=== PATIENT | female | born 1930 | race Caucasian/White ===

== ENCOUNTER 2016-06-24 13:39 | Inpatient (IN) | payer MEDICARE, BC ==
--- NOTE | ~2016-06-24 | MR122 ---
[facility] A Service of [facility] RADIOLOGY TEXT RESULTS PATIENT: VIOLET LÓPEZ LOCATION: [facility] : 30 UNIT #: [id number] AGE: [address]: Celestine Coelho MD SEX: F ORDER DR: [id number] [facility] [address] [facility]. [place], [place] [address] [id number] I MR#: [id number] Acc #: [id number] NAME: VIOLET LÓPEZ. : 1930 SEX: F STUDY DATE/TIME: 06/25/2016 21:39 UNIT: C3A PCU ROOM: [facility] STUDY DESCRIPTION: MR MRA Head Wo Contrast Attending Physician: Celestine Coelho M.D. Ordering Physician: Yumiko Kirk M.D. Primary Care Physician: No Primary Care Physician MRI CENTER REPORT This report is preliminary unless electronic signature is present. EXAM Head MRA, no contrast, 06/25/2016. PROCEDURE Axial feye-rw-ymqpud head MRA with 3-dimensional reformats. COMPARISON STUDIES Head MRI, same date. HISTORY Right facial droop and slurred speech, left jackson radiata infarct. FINDINGS A right vertebral is not seen. The left vertebral supplies the basilar artery. Both internal carotid arteries are patent at the skull base. The anterior communicator and both A1 anterior cerebrals are patent. Both posterior communicators are clearly patent, as well. There are technical areas of signal drop-out in the mid MCAs bilaterally, but grossly, there appears to be symmetric vascularity. IMPRESSION Technically limited, but probably normal head MRA. Areas of signal drop-out appear to be technical. [place] appears complete, and no aneurysm is seen. Dictated by... Dwaine Palencia M.D. THIS IS AN ELECTRONICALLY VERIFIED REPORT [facility] A Service of [facility] RADIOLOGY TEXT RESULTS PATIENT: VIOLET LÓPEZ LOCATION: [facility] 313 : 30 UNIT #: [id number] AGE: [address]: Celestine Coelho MD SEX: F ORDER DR: Dwaine Palencia M.D. at 06/27/2016 3:37 PM BELEN/shanita TD: 06/26/2016 13:41 JOB #: [id number] MRI CENTER REPORT COPY
--- NOTE | ~2016-06-24 | CO ---
Unit #: [id number] #: [id number] Patient: VIOLET SPENCER [id number] [facility] [address] [facility]. [place], [place] [address] [id number] I MR#: [id number] NAME: VIOLET SPENCER. ROOM: 313 Age: 86 Sex: F Admission Date: 06/25/2016 : 1930 Attending Physician: Celestine Coelho M.D. Consultation Date: 06/26/2016 CONSULTATION REPORT DISCUSSION Ms. Violet Spencer is an 86-year-old female, seen on 06/26/2016. The patient was seen in room 313, bed 1, at [facility]. The patient was admitted due to agitation and history of dementia. The patient was admitted on 06/24/2016 with slurred speech. The patient was seen by Neurology and diagnosed with right-sided severe weakness, possible ischemic stroke, toxic encephalopathy, UTI, dementia. The patient was sleeping, refusing to open her eyes, refusing to answer any question, very agitated when aroused. The patient was pushing, hitting, pulling things. Also obtained information from the patient's nursing staff. PAST PSYCHIATRIC HISTORY Remarkable for history of dementia. MEDICAL HISTORY The patient has a right-sided facial droop, uncontrollable hypertension, UTI, sepsis, chronic kidney disease, history of cerebrovascular accident with mild left-sided weakness, degenerative joint disease, history of seizure, dementia, history of deep venous thrombosis. MEDICATIONS The patient is on Coumadin 3 mg Friday, , Friday; Norvasc; Plavix; Catapres; Coumadin; NovoLog. Please refer to H and P for details. FAMILY HISTORY AND SOCIAL HISTORY The patient lives with her daughter. Has good support system. No history of any abuse. No history of any substance abuse. REVIEW OF SYSTEMS Complete review of systems is remarkable for agitation and confusion. MENTAL STATUS EXAMINATION General appearance; the patient dressed in hospital attire. Attention span and concentration, poor. Speech, the patient is refusing to answer any question. Orientation, unable to assess. Mood and affect, labile. Thought process, thought content, guarded, paranoid. Recent and remote memory, poor. Language unable to assess. Fund of knowledge, unable to assess. Insight and judgment, impaired. DIAGNOSES Psychiatric: 1. Psychosis, not otherwise specified, F29.0. 2. 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 Secondary diagnosis: Deferred. Medical diagnosis: Please refer to H and P. Stressors: Psychosocial stressors. ASSESSMENT/PLAN 1. Supportive psychotherapy and psychoeducation were provided to the patient, the patient is unable to comprehend. 2. Discussed case with the nursing staff. Advised at this time to continue with current treatment. If needed, consider a sitter for the patient's safety and advised Risperdal 0.25 mg t.i.d. based on tolerability and effects of the medication. If needed, consider further adjustment of dosage. Please feel free to call if any questions, telephone #[phone]. Dictated by... Byron Garcia/ladonna TD: 06/27/2016 08:38 JOB #: [id number] CONSULTATION REPORT X Jeffrey Su MD X CONSULTATION REPORT
--- NOTE | ~2016-06-24 | MR18 ---
[facility] A Service of [facility] RADIOLOGY TEXT RESULTS PATIENT: VIOLET LÓPEZ LOCATION: [facility] 313-01 : 30 UNIT #: [id number] AGE: [address]: Celestine Coelho MD SEX: F ORDER DR: [id number] [facility] [address] [facility] [place], [place] [address] [id number] I MR#: [id number] Acc #: [id number] NAME: VIOLET LÓPEZ. : 1930 SEX: F STUDY DATE/TIME: 06/24/2016 19:58 UNIT: A U ROOM: [facility] STUDY DESCRIPTION: MR Brain Wo Contrast Attending Physician: Celestine Coelho M.D. Ordering Physician: Mary Camp M.D. Primary Care Physician: No Primary Care Physician MRI CENTER REPORT This report is preliminary unless electronic signature is present. EXAM MRI of the brain without contrast HISTORY 86-year-old female right facial droop, slurred speech, weakness, onset 06/24/2016 at [address] 06/24/2016 FINDINGS Multiplanar multiecho imaging was performed of the brain to include diffusion weighted and FLAIR imaging. Examination demonstrates approximately 2 cm focus of a restricted diffusion within the left periventricular white matter at about the mid ventricular level. This extends to the ventricular surface. Findings compatible with acute periventricular white matter infarct. This is in the distribution of the middle cerebral artery. Generalized atrophy with diffuse prominence of the ventricles, sulci and basilar cisterns. Extensive T2 periventricular hyperintensity as well as hyperintensity within the deep white matter most likely reflects chronic small vessel ischemic disease. No mass, mass effect or midline shift. Some focal cortical atrophy is seen over the left posterior parietal cortex. Skull base, mastoid sinuses unremarkable. IMPRESSION 1. A small acute appearing periventricular infarct in the left periventricular white matter. This demonstrates restricted diffusion and a corresponding low signal on the ADC map. This is compatible with an acute infarct. 2. Generalized atrophy with extensive chronic-appearing periventricular white matter and deep white matter disease probably representing the sequela of chronic microvascular disease. STS. [facility] A Service of [facility] RADIOLOGY TEXT RESULTS PATIENT: VIOLET LÓPEZ LOCATION: [facility] 313-01 : 30 UNIT #: [id number] AGE: [address]: Celestine Coelho MD SEX: F ORDER DR: Dictated by... Lukasz Hammer M.D. THIS IS AN ELECTRONICALLY VERIFIED REPORT Lukasz Hammer M.D. at 06/25/2016 6:33 PM Claudio TD: 06/25/2016 09:45 JOB #: [id number] MRI CENTER REPORT COPY
--- NOTE | ~2016-06-24 | EKG ---
PATIENT: VIOLET LÓPEZ UNIT #: [id number] Ventricular Rate: 62 BPM Atrial Rate: 62 BPM P-R Interval: 166 ms QRS Duration: 82 ms Q-T Interval: 454 ms QTC Calculation(Bezet): 460 ms P [place]: 33 degrees Calculated R [place]: 1 degrees Calculated T [place]: -42 degrees Diagnosis Line: Normal sinus rhythm Diagnosis Line: Voltage criteria for left ventricular hypertrophy Diagnosis Line: Nonspecific ST and T wave abnormality Diagnosis Line: Abnormal ECG Diagnosis Line: No previous ECGs available Diagnosis Line: Confirmed by GLENN JONES MD ([id number]) on Diagnosis Line: 06/24/2016 3:28:54 PM INTERPRETING MD: ROBERT VILLAGOMEZ
--- NOTE | ~2016-06-24 | MR134 ---
[facility] A Service of [facility] RADIOLOGY TEXT RESULTS PATIENT: VIOLET LÓPEZ LOCATION: [facility] 313- : 30 UNIT #: [id number] AGE: [address]: Celestine Coelho MD SEX: F ORDER DR: [id number] [facility] [address]. [place], [place] [address] [id number] I MR#: [id number] Acc #: [id number] NAME: VIOLET LÓPEZ. : 1930 SEX: F STUDY DATE/TIME: 06/25/2016 21:39 UNIT: [facility] PCU ROOM: [facility] STUDY DESCRIPTION: MR MRA Neck Wo Contrast Attending Physician: Celestine Coelho M.D. Ordering Physician: Yumiko Kirk M.D. Primary Care Physician: Primary Care Physician No MRI CENTER REPORT This report is preliminary unless electronic signature is present. EXAM Neck MRA without contrast, 06/25/2016 PROCEDURE Axial jjnn-bu-jlpzrq neck MRA with both three-dimensional and two-dimensional axial acquisitions and three-dimensional reformats of both. COMPARISON Head MRI same date. CLINICAL HISTORY Right facial droop and slurred speech. Left jackson radiata acute infarct on MRI. FINDINGS Both common and internal and external carotid arteries are widely patent. The right vertebral artery, however is absent. Allowing for mild motion artifact, the carotid bifurcations appear normal without evidence of substantial plaque. There is 0% stenosis in both internal carotids by NASCET criteria. IMPRESSION 1. Absent or occluded right vertebral artery. 2. Normal carotid bifurcations bilaterally. No evidence of stenosis in either internal carotid by NASCET or other criteria. Dictated by... Dwaine Palencia M.D. THIS IS AN ELECTRONICALLY VERIFIED REPORT Dwaine Palencia M.D. at 06/27/2016 3:37 PM BELEN/amilcar [facility] A Service of [facility] & [facility] RADIOLOGY TEXT RESULTS PATIENT: VIOLET LÓPEZ LOCATION: [facility] 313- : 30 UNIT #: [id number] AGE: [address]: Celestine Coelho MD SEX: F ORDER DR: TD: 06/26/2016 13:25 JOB #: [id number] MRI CENTER REPORT COPY
--- NOTE | ~2016-06-24 | CO ---
Unit #: [id number] #: [id number] Patient: VIOLET SPENCER [id number] [id number] [facility]. [place], [place] [address] [id number] I MR#: [id number] NAME: VIOLET SPENCER. ROOM: 313 Age: 86 Sex: F Admission Date: 06/25/2016 : 1930 Attending Physician: Celestine Coelho M.D. CONSULTATION REPORT REASON FOR CONSULTATION Acute kidney injury in the setting of stage 3/4 chronic kidney disease. HISTORY OF PRESENT ILLNESS This 86-year-old white female, who has stage 3/4 chronic kidney disease with a baseline creatinine around 1.8, who is followed by Dr. Clements in our office. She was brought to the emergency department for abnormal speech and difficulty walking. She had a right facial droop. In the emergency department, her CT of the head showed nothing acute. Her BUN and creatinine were worse at 38 and 2.2. The patient's blood pressure was very elevated at 204/106. She was brought in for further evaluation of stroke. She also had some pyuria on urinalysis and was started on empiric Rocephin for UTI. PAST MEDICAL HISTORY 1. Recent left hip fracture and repair in 01/2016. 2. Stage 3/4 chronic kidney disease, followed by Dr. Clements in our office. 3. Dementia. 4. Hypertension. 5. DVT, on Coumadin. PAST SURGICAL HISTORY 1. Bilateral hip surgery. 2. Hemorrhoid surgery. SOCIAL HISTORY The patient lives with her daughter, who is caregiver. The daughter is very supportive. She usually can get around with a walker. She does not smoke or drink. ALLERGIES No known drug allergies. MEDICATIONS Current hospital medications are Rocephin, Plavix, Catapres, Norvasc, hydralazine, Lopressor, half normal saline with D5 at 125 mL an hour, Coumadin, and Lovenox. REVIEW OF SYSTEMS The patient is confused and has some baseline dementia so review of systems is limited, but currently the patient is not complaining of pain and no distress of any kind. Resting comfortably in bed. Her daughter is present. Unit #: [id number] #: [id number] Patient: VIOLET SPENCER PHYSICAL EXAMINATION GENERAL: This lady is thin. VITAL SIGNS: Blood pressure is 154/78, heart rate is 70, temperature is 97.5. HEENT: Extraocular muscles are intact. There is no eye drainage. No icterus. NECK: Supple without JVD, thyromegaly, or carotid bruit. CHEST: Shows regular rate and rhythm. There is no gallop or rub. LUNGS: Clear to auscultation bilaterally. ABDOMEN: Soft, nontender, nondistended. Positive bowel sounds. EXTREMITIES: No cyanosis, clubbing, or edema. DIAGNOSTIC STUDIES LABORATORY RESULTS: Shows potassium of 3.2, BUN of 38, creatinine of 2.2. Urinalysis shows 1+ leukocytes, 3+ protein, 1+ blood, 50 white blood cells, and 4+ bacteria. IMAGING STUDIES: Chest x-ray shows no CHF. ASSESSMENT 1. Acute kidney injury. The patient appears volume depleted on exam. We will order half-normal saline to run at 100 mL an hour for 1 L. 2. Uncontrolled hypertension. Her home medicines will be restarted with attempt at avoidance of over control of blood pressure. 3. Right facial droop, abnormal speech, difficulty walking. Neurology has been consulted. The patient has Coumadin on board for history of deep vein thrombosis and is on Plavix. Further recommendations will be per Neurology. 4. Urinary tract infection, on Rocephin. 5. Chronic kidney disease, stage 3 with a baseline creatinine of 1.8. she sees Dr. Clemetns in the office. 6. History of deep vein thrombosis, on Coumadin. 7. History of baseline dementia. PLAN We will order IV fluids for hydration. Would avoid IV contrast NSAIDs and over control of blood pressure at this time. We will reorder home medicines for blood pressure control. Neurology has been consulted. Thank you very much for allowing me to see Ms. Violet Spencer in consultation. We will follow closely with you. Dictated by... Mily Castle M.D. MALCOLM/ladonna TD: 06/27/2016 00:49 JOB #: [id number] Unit #: [id number] #: [id number] Patient: VIOLET SPENCER CONSULTATION REPORT X Mily Castle MD CONSULTATION REPORT
--- NOTE | ~2016-06-24 | EKG ---
PATIENT: VIOLET LÓPEZ UNIT #: [id number] Ventricular Rate: 66 BPM Atrial Rate: 66 BPM P-R Interval: 162 ms QRS Duration: 86 ms Q-T Interval: 428 ms QTC Calculation(Bezet): 448 ms P [place]: 31 degrees Calculated T [place]: 115 degrees Diagnosis Line: Normal sinus rhythm Diagnosis Line: Voltage criteria for left ventricular hypertrophy Diagnosis Line: T wave abnormality, consider lateral ischemia Diagnosis Line: Abnormal ECG Diagnosis Line: When compared with ECG of 24-JUN-2016 13:03, Diagnosis Line: Inverted T waves have replaced nonspecific T wave Diagnosis Line: abnormality in Lateral leads Diagnosis Line: Confirmed by GLENN JONES MD ([id number]) on Diagnosis Line: 06/26/2016 11:23:57 AM INTERPRETING MD: ROBERT VILLAGOMEZ
--- NOTE | ~2016-06-24 | CR72 ---
[facility] A Service of [facility] RADIOLOGY TEXT RESULTS PATIENT: VIOLET LÓPEZ LOCATION: [facility] 313-01 : 30 UNIT #: [id number] AGE: [address]: Celestine Coelho MD SEX: F ORDER DR: [id number] [facility] [address] [facility]. [place], [place] [address] [id number] E MR#: [id number] Acc #: [id number] NAME: VIOLET LÓPEZ : 1930 SEX: F STUDY DATE/TIME: 06/24/2016 13:11 UNIT: [facility] ROOM: STUDY DESCRIPTION: CR Chest Single View Portable Attending Physician: Antoni Miguel M.D. Ordering Physician: Antoni Miguel M.D. Primary Care Physician: No Primary Care Physician MEDICAL IMAGING REPORT This report is preliminary unless electronic signature is present EXAM Chest, portable, 06/24/2016, 1311 hours. CLINICAL HISTORY 86-year-old woman with weakness, shortness of air, and slurred speech since last night. COMPARISON 01/29/2016 FINDINGS Portable upright chest demonstrates slightly low lung volumes. Heart size is at the upper limits of normal. There is a tortuous aorta unchanged. Lung volumes are low but the lungs are clear. There is no effusion. 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 Chronic degenerative change left shoulder. IMPRESSION 1. Low lung volumes with heart size within normal limits and stable tortuous aorta. The lungs are clear and there are no effusions. 2. Chronic degenerative change at both shoulders likely with chronic nonunion right proximal humeral fracture and an element of chronic dislocation appearing similar to 01/29/2016. Dictated by... Melissa Kasper M.D. THIS IS AN ELECTRONICALLY VERIFIED REPORT Melissa Kasper M.D. at 06/25/2016 9:25 AM GÓMEZ/roberto [facility] A Service of [facility] RADIOLOGY TEXT RESULTS PATIENT: VIOLET LÓPEZ LOCATION: [facility] 313-01 : 30 UNIT #: [id number] AGE: [address]: Celestine Coelho MD SEX: F ORDER DR: TD: 06/24/2016 15:07 JOB #: [id number] MEDICAL IMAGING REPORT COPY
--- NOTE | ~2016-06-24 | CT71 ---
[facility] A Service of [facility] RADIOLOGY TEXT RESULTS PATIENT: VIOLET LÓPEZ LOCATION: [facility] : 30 UNIT #: [id number] AGE: [address]: Mary Camp MD SEX: F ORDER DR: [id number] [facility] [address] [place], [place] [address] [id number] E MR#: [id number] Acc #: [id number] NAME: VIOLET LÓPEZ : 1930 SEX: F STUDY DATE/TIME: 06/24/2016 14:01 UNIT: [facility] ROOM: STUDY DESCRIPTION: CT Head Wo Contrast Attending Physician: Antoni Miguel M.D. Ordering Physician: Antoni Miguel M.D. Primary Care Physician: No Primary Care Physician MEDICAL IMAGING REPORT This report is preliminary unless electronic signature is present EXAM Head CT no contrast 06/24/2016 PROCEDURE Axial unenhanced head CT This CT exam was performed with one or more of the following radiation dose reduction techniques: automatic exposure control, adjustment of mA and/or kV according to patient size, and iterative reconstruction. COMPARISON STUDIES Prior head CT dated 01/25/2016 HISTORY Slurred speech and weakness since 2199 on 06/23/2016. FINDINGS There is no intracranial hemorrhage. There is volume loss and there are chronic white matter changes and there is ventriculomegaly but these findings are stable when compared to the prior study. There is no convincing evidence of acute ischemia and there is no hydrocephalus or extraaxial fluid collection. Intracranial atherosclerotic vascular calcifications are redemonstrated. The extracranial soft tissues are normal. IMPRESSION Chronic small vessel type white matter change and volume loss. No acute abnormality and no interval change since 01/25/2016. Dictated by... Dwaine Palencia M.D. [facility] A Service [facility] RADIOLOGY TEXT RESULTS PATIENT: VIOLET LÓPEZ LOCATION: [facility] : 30 UNIT #: [id number] AGE: [address]: Mary Camp MD SEX: F ORDER DR: THIS IS AN ELECTRONICALLY VERIFIED REPORT Dwaine Palencia M.D. at 06/24/2016 5:02 PM BELEN/aguilar TD: 06/24/2016 16:53 JOB #: [id number] MEDICAL IMAGING REPORT COPY
--- NOTE | ~2016-06-24 | HP ---
Unit #: [id number] #: [id number] Patient: VIOLET LÓPEZ [id number] [place], [place] [address] [id number] I MR#: [id number] NAME: VIOLET LÓPEZ. ROOM: 313 Age: Sex: F Admission Date: 06/24/2016 : 1930 Attending Physician: Celestine Coelho M.D. Primary Care Physician: Primary Care Physician No HISTORY AND PHYSICAL CHIEF COMPLAINT Slurred speech, last seen normal last night. HISTORY OF PRESENT ILLNESS The patient is an 86-year-old female with a past medical history of hypertension, chronic kidney disease, cerebrovascular accident, degenerative joint disease, seizures, dementia, DVT, and chronic anticoagulation, who presented to the emergency department for evaluation of the above. History is obtained from discussion with ER staff, as well as the patient's daughter who is at the bedside. The patient was apparently last normal around 10:30 on the evening prior to admission. This morning at 10 a.m. the patient's daughter noticed that she had abnormal speech and was unable to walk. She also noticed a right-sided facial droop. She was brought to the emergency department for further evaluation. In the emergency department, a CT of the head was done and showed nothing acute. Chest x-ray showed nothing acute. Laboratory is notable for BUN and creatinine of 38 and 2.2, respectively. INR is 1.7. Urinalysis shows findings concerning for urinary tract infection. Also of note, the patient's blood pressure was 204/106. She was given 20 mg of labetalol, and most recent blood pressure was 154/78. Also of note, the patient's temperature was 95. She was placed on a Layton Hugger. She also received a gram of Rocephin. She is being admitted to [facility] for evaluation and further treatment. PAST MEDICAL HISTORY 1. Admission to [facility] January 24-2015, following a fall with left hip fracture. She underwent intramedullary nailing during that admission. 2. Cerebrovascular accident with mild residual left-sided weakness. 3. Hypertension. 4. Chronic kidney disease. The patient has seen Dr. De Guzman in the past. 5. Degenerative joint disease. 6. Possible history of seizure. 7. Deep venous thrombosis, on chronic anticoagulation with Coumadin. 8. Dementia. At baseline, the patient's daughter states that she may or may not know the year. PAST SURGICAL HISTORY 1. Bilateral hip surgery. 2. Hemorrhoid surgery. Unit #: [id number] #: [id number] Patient: VIOLET LÓPEZ SOCIAL HISTORY The patient lives with her daughter. She typically walks with a walker. There is no tobacco or alcohol use. Her code status is a Do Not Resuscitate. FAMILY HISTORY Diabetes. ALLERGIES No known allergies. HOME MEDICATIONS Plavix and Coumadin. The patient is not on aspirin. Home medications will need to be reviewed and verified. REVIEW OF SYSTEMS A complete review of systems is negative except as indicated in the History of Present Illness. PHYSICAL EXAMINATION VITAL SIGNS: Temperature 95, pulse 70, respirations 25, blood pressure 204/106 and most recently 154/78, and oxygen saturation 99% on room air. GENERAL: Patient is an female who is awake, alert, and in no acute distress. HEENT: Head is atraumatic. Mucous membranes are moist. NECK: Supple. Trachea is midline. CARDIOVASCULAR: Regular rate and rhythm. LUNGS: Clear to auscultation bilaterally with no increased work of breathing. ABDOMEN: Soft and nontender with bowel sounds present in all four quadrants. EXTREMITIES: Nontender with no pedal edema. NEUROLOGIC: Patient is awake and alert. She does have slurred speech. She is somewhat slow to respond. She is following commands. She does have a right facial droop. Tongue is midline. Singing Teacher strength is decreased involving the right hand. She does have pronator drift involving the right upper extremity. PSYCHIATRIC: Patient is cooperative. SKIN: Skin of examined areas is warm and dry. DIAGNOSTIC STUDIES LABORATORY: INR is 1.7. Troponin is less than 0.05. Complete blood count is completely normal. Comprehensive metabolic panel is notable for a potassium of 3.2, glucose 119, BUN and creatinine 38 and 2.2, respectively, and alkaline phosphatase is 121. Urinalysis is notable for 1+ leukocyte esterase, 3+ protein, 1+ blood with 50-100 white blood cells, and 4+ bacteria. No squamous cells are seen. IMAGING: Chest x-ray shows nothing acute. CT of the head shows nothing acute. CARDIOLOGY: EKG shows normal sinus rhythm with a rate of 62 beats per minute. ASSESSMENT The patient is an 86-year-old female with: 1. Right facial droop, abnormal speech, and right upper extremity weakness concerning for cerebrovascular accident. The patient is on Unit #: [id number] #: [id number] Patient: VIOLET LÓPEZ Coumadin for deep venous thrombosis. INR is 1.7. She is also on Plavix. 2. Uncontrolled hypertension. The patient received 20 mg of labetalol in the emergency department. Most recent blood pressure was 154/78. 3. Urinary tract infection. The patient received Rocephin in the emergency department. 4. Sepsis. 5. Chronic kidney disease. The patient's creatinine was 1.7 on November 18, 2015. It is 2.2 today. The patient has seen Dr. De Guzman in the past. 6. History of cerebrovascular accident with mild left-sided weakness. 7. Degenerative joint disease. 8. History of seizures possibly. 9. Dementia. The patient would normally be oriented to person and place but not typically dates. 10. History of deep venous thrombosis, on chronic anticoagulation with Coumadin. PLAN 1. Admit to intermediate level. 2. N.p.o. until Speech evaluation. 3. Speech Therapy to evaluate and treat. 4. Aspirin if not already given. 5. Consult Dr. Kirk regarding right facial droop and concern for stroke. 6. MRI of the brain without contrast. 7. Neuro checks. 8. Stroke protocol per Neurology. 9. Blood cultures x2. 10. Urine culture and sensitivity on urine in the lab. 11. Rocephin IV pending results of urine culture. 12. Sepsis protocol with stat lactic acid. 13. Serial cardiac enzymes. 14. Replace potassium. 15. Check magnesium level. 16. Layton Hugger per protocol. 17. Consult Dr. De Guzman regarding acute on chronic kidney disease. 18. Strict I/Os. 19. Repeat labs in the morning. 20. Additional workup and consultants based on above. 21. Regarding code status, the patient is a Do Not Resuscitate. 1. Dictated by Mary Camp M.D. AW/mckayla TD: 06/24/2016 18:13 JOB #: [id number] Unit #: [id number] #: [id number] Patient: VIOLET LÓPEZ HISTORY AND PHYSICAL X Mary Camp MD HISTORY AND PHYSICAL
--- NOTE | ~2016-06-24 | DS ---
Unit #: [id number] #: [id number] Patient: VIOLET LÓPEZ [id number] [address] [id number] I MR#: [id number] NAME: VIOLET LÓPEZ. ROOM: 228 Age: 86 Sex: F Admission Date: 06/25/2016 : 1930 Discharge Date: 06/28/2016 Attending Physician: Celestine Coelho M.D. Primary Care Physician: No Primary Care Physician DISCHARGE SUMMARY DISCHARGE DIAGNOSES 1. Small acute-appearing periventricular infarct in the left periventricular white matter. 2. Dementia with delirium. 3. Sepsis due to Enterococcus urinary tract infection. 4. Acute on chronic kidney disease, stage 3-4. 5. Escalated hypertension. 6. History of cerebrovascular accident with persistent left-sided mild weakness. 7. Degenerative joint disease. 8. History of seizure disorder. 9. History of deep vein thrombosis, anticoagulated with Coumadin. CONSULTANTS 1. Dr. Kirk of neurology. 2. Dr. Castle of nephrology. 3. Dr. Su of psychiatry. DIAGNOSTIC STUDIES IMAGING: X-ray of chest. Impression - Low lung volumes with heart size within normal limits and stable tortuous aorta. The lungs are clear, and there are no effusions. Chronic degenerative change at both shoulders, likely with chronic nonunion right proximal humeral fracture and an element of chronic dislocation appearing similar to 01/29/16. CT head without contrast. Impression - Chronic small vessel type white matter change and volume loss. No acute abnormality and no interval change since 01/25/2016. MRI of brain revealed a small acute-appearing periventricular infarct in the left periventricular white matter. Demonstrates restricted diffusion and a corresponding low signal on the ADC map compatible with an acute infarct. Generalized atrophy with extensive chronic-appearing periventricular white matter and deep white matter disease probably representing the sequela of chronic microvascular disease. MRI of head and neck with impression - Absent or occluded right vertebral artery. Normal carotid bifurcations bilaterally. No evidence of stenosis in either internal carotid. LABS: BMP with glucose of 143, BUN 37, creatinine 2.3, sodium 137, potassium 3.6, chloride 104, CO2 21, calcium 9.4, magnesium 1.8, total protein 6.6, albumin 3.6, total bilirubin 0.4, AST 25, ALT 15, alkaline phosphatase 115. CPK was 171, troponin undetectable. B12 when assessed Unit #: [id number] #: [id number] Patient: VIOLET LÓPEZ L was 1,025. Hemoglobin A1C was 5.1. Lactic acid when assessed was 1.3. CBC with WBC of 4.8, RBC 3.58, hemoglobin 10.9, hematocrit 34, MCV 95, MCH 30.5, MCHC 32.1, RDW 14.3, platelets 149, MPV 10.8. HOSPITAL COURSE The patient is a pleasant 86-year-old female with past medical history of essential hypertension, chronic kidney disease, remote cerebrovascular accident, degenerative joint disease, seizure disorder, dementia, DVT and chronic anticoagulation due to the DVT. She was brought to the emergency department due to facial droop. The patient's history was obtained from ER staff, as well as the patient's daughter, who was at the bedside. The patient was apparently normal around 10:30 on the evening prior to admission. The morning at 10 a.m. the patient's daughter noticed that she had abnormal speech and was unable to walk. She also noted right-sided facial droop. The patient was brought to the emergency department for further evaluation. In emergency department, CT of the head was done, which was unremarkable. Chest x-ray was unremarkable, as well. Her "urinalysis" revealed that she chronic kidney disease with stable baseline creatinine. INR was 1.7. She was therapeutic. Urinalysis revealed concern for UTI. Blood pressure was very elevated at 204/106. The patient was treated for her escalated hypertension, which reduced to 154/78. The patient's temperature was 95. Therefore, Layton-Hugger was utilized. She was treated for the UTI with Rocephin. She was seen in consultation with Dr. Kirk. Of note the patient takes Coumadin and admission INR was 1.7 for remote DVT. She is on Plavix, I believe, for the previous CVA. The patient was treated for her subtherapeutic INR with Lovenox. Per "nephrology's" recommendation, they had offered the patient an EEG, but she had refused it at that time with history of seizure disorder. They had also offered the patient to assess her heart valves with an echo, but she had refused that, as well. "Nephrology" felt that it was small vessel disease and that they could recheck the MRI of the head and neck but would like to continue conservative management. Plavix was held due to concern with small vessel disease, but Coumadin was continued with bridging with Lovenox under "nephrology's" recommendation. She was also seen in consultation by nephrology for her chronic kidney disease who felt that the patient was slightly dry. Therefore, she received fluid hydration, as well as to abstain from any further nephrotoxic medications. We were treating the patient with empiric Rocephin for her UTI and was restarting the patient on Coumadin for her history of DVT, as well as now with an acute infarction. The patient became agitated and combative the following day. She was pulling IVs out and was hitting nurses and physicians. Due to her change in mental status, Dr. Su was consulted who felt that the patient was having an episode of psychosis secondary to stressors of the UTI, the CVA and acute kidney injury and offered the patient Risperdal for her agitation, as well as to have a one-on-one sitter with this event. The patient's daughter wished that, due to the patient's advancing age, the patient be made io-imr-rlaakdeojcb/ef-pie-ywsfpoog code status and to proceed with comfort measures only. The patient's daughter voiced understanding that, without her medications, the patient would have the risk of . She voiced understanding and wished to proceed with that to focus on her mother's comfort level. [facility], and at this time, due to the patient's fairly stable condition, she will be discharged home with her daughter under the care of [facility]. We are stopping all of her previous medications and only continuing with Roxanol oral solution 5 Unit #: [id number] #: [id number] Patient: RENE,VIOLET L mg orally every 3 hours as needed for dyspnea and/or pain, as well as Ativan intensol 0.5 mg orally q.6 hours as needed for agitation and restlessness. DISCHARGE CONDITION Stable. DISPOSITION Home with daughter and Hospice care. Dictated by... Ned Aguila PA-C for Byron Galloway/kate TD: 06/28/2016 09:59 JOB #: [id number] DISCHARGE SUMMARY X X DISCHARGE SUMMARY
--- NOTE | ~2016-06-24 | CO ---
Unit #: [id number] #: [id number] Patient: VIOLET LÓPEZ [id number] [facility] [address] [facility] [place], [place] [address] [id number] I MR#: [id number] NAME: VIOLET LÓPEZ. ROOM: 313 Age: 86 Sex: F Admission Date: 06/25/2016 : 1930 Attending Physician: Celestine Coelho M.D. CONSULTATION REPORT PRIMARY CARE PHYSICIAN Not listed. REASON FOR CONSULT Right facial droop. PATIENT INDICATION This is an 86-year-old female evaluated in room #313 in [facility]. SOURCE OF INFORMATION Obtained from the patient's family as well as nursing staff and medical record. HISTORY OF PRESENT ILLNESS This is an 86-year-old female with past medical history of hypertension and stroke according to the family, who presented to [facility] with slurred speech and weakness. She was last seen normal around 10:30 p.m. on the evening prior to admission that she was not a candidate for any acute intervention when she arrived to the ED. On the morning of admission, around 10 a.m., the patient's daughter noticed that the patient was not speaking clearly and was not able to walk. She noticed the right-sided facial droop, therefore she was brought to the ER for further evaluation. She had a head CT done that did not show any acute abnormalities, however she had an MRI of the brain done without contrast, that showed a small acute appearing periventricular infarct and left periventricular white matter consistent with an acute infarct, and it also showed generalized atrophy with extensive chronic-appearing periventricular white matter and deep white matter disease, probably representing sequelae of chronic microvascular disease. The patient's chest x-ray was unremarkable. She did have an elevated BUN and creatinine. Her INR was subtherapeutic at 1.7. Her urinalysis was concerning for UTI. The patient's blood pressure was also significantly elevated at 204/106. She was given 20 mg of labetalol, which brought her pressure down to 154/78. Also, the patient was hypothermic with a temperature of 95, that she was placed on a Layton Hugger. She receive 1 g of IV Rocephin and she was admitted for further evaluation. The patient upon our evaluation is poorly responsive, is a poor historian. She was apparently talking to the nurse when she suddenly became poorly responsive. Her eyes rolled back and she was grinding her teeth. I was unable to get the patient to respond to any noxious stimuli with very deep nailbed pressure bilaterally and repeatedly. She began to wake up, but was having intermittent episodes of responsiveness. Dr. Kirk saw the patient and became concerned that this maybe functional. He did use an Unit #: [id number] #: [id number] Patient: VIOLET LÓPEZ ammonia capsule and the patient became very agitated and said to stop. We ordered an EEG, however she has refused. Exam is limited as the patient is poorly cooperative. She seems to be moving her right side, specifically her upper extremity less. She does appear to have a facial droop on the right side. She is unable to provide any history. The rest of the history is provided per the medical record and the family at the bedside, which are her children. PAST MEDICAL HISTORY 1. Admission to [facility] on 01/24 through 01/29 following a fall with a left hip fracture. She is status post intramedullary nailing during that admission. 2. CVA with mild residual left-sided weakness. 3. Hypertension. 4. Chronic kidney disease. 5. DJD. 6. Possible history of seizure, however this is according to the medical record, and according to the daughter she adamantly denies the patient has any history of seizure. She does report the patient has a history of "stroke.". 7. DVT. She is on chronic anticoagulation with warfarin. She came in with a subtherapeutic INR. 8. Dementia, apparently at her baseline. She is not oriented to the year, but is otherwise able to communicate and make her needs known. 9. Hemorrhoid surgery. 10. Bilateral hip surgery. ALLERGIES No known drug allergies. FAMILY HISTORY Noncontributory given her stated age of 86. SOCIAL HISTORY She lives with her daughter. She has dementia at baseline. She walks with a walker. She is able to ambulate. She has no history of tobacco use, alcohol use, or illicit drug use. She is a do not resuscitate as far as her code status. REVIEW OF SYSTEMS Unable to obtain from the patient given her mental status. MEDICATIONS Home medications include: 1. Metoprolol 100 mg p.o. daily. 2. Clonidine, dosage and frequency not documented on the med rec and needs clarifying. 3. Amlodipine besylate 10 mg p.o. daily. 4. Docusate sodium 100 mg p.o. b.i.d. 5. Remeron 15 mg p.o. b.i.d. 6. Plavix 75 mg p.o. daily. 7. MiraLAX 17 g p.o. daily. 8. Warfarin 3 mg p.o. on Friday, , and Friday; and 4.5 mg p.o. on Friday, Friday, and Friday. PHYSICAL EXAMINATION VITAL SIGNS: Temperature 98.1, pulse 79, respirations 17, blood pressure 157/69, oxygen saturation 100%. Height 5 feet 1 inch. Weight 115 pounds. Unit #: [id number] #: [id number] Patient: VIOLET LÓPEZ BMI 21. NEUROLOGIC: The patient is again poorly responsive. She is arousable with an ammonia capsule, but is essentially nonverbal other than saying stop. She does not follow commands. She appears to be unable to use her right upper extremity or right lower extremity, though exam is very limited. She appears to have a right facial droop. Please see above in the HPI for her initial exam. CRANIAL NERVES: She responds to threats in the primary visual gaitan. Eyes are conjugate when she is more awake. Extraocular movements appear to be intact spontaneously. Unable to assess sensation of face and scalp. She appears to have a right facial droop with grimace, but exam is limited. Hearing is unable to be fully assessed. Tongue, uvula, or palate are unable to be assessed. Head turning is unremarkable spontaneously. Motor exam unable to be fully assessed further than as discussed above. Gait and Romberg deferred. Reflexes not elicited. Toes are equivocal. Coordination unable to assessed. LABORATORY AND IMAGING DATA For diagnostic studies please see above. Labs, blood cultures preliminary no growth after 24 hours x2 sets. Sodium 143, potassium 3.9, chloride 111, CO2 of 21, glucose 86, BUN 40, creatinine 2.6, estimated GFR 18.5, calcium 9.1. CRP less than 0.5. CK 87. TSH 1.99. Cholesterol 223, triglycerides 136, LDL 139, HDL 57. Troponin less than 0.03. PTT 21.9. INR 2.0. White blood cell count 4.8, hemoglobin 10.9, hematocrit 34, platelet count 149. IMPRESSION 1. Small acute left subcortical cerebrovascular accident with right-sided weakness. 2. Episode of unresponsive, rule out seizure versus functional. 3. Urinary tract infection, culture pending. 4. History of cerebrovascular accident per the family. 5. Acute kidney injury with history of chronic kidney disease. PLAN The patient is on Plavix and warfarin at home. She has a subtherapeutic INR of 1.7. We will start the patient on 1 mg/kg once daily of Lovenox with renal dosing until INR is 2 or greater. We will check platelet function analysis for Plavix. The patient has refused for EEG, has refused for echo. Stroke is likely small vessel, we will recheck an MRI of the head and neck, but likely conservative management is recommended. I am concerned about stroke while on Plavix with a small vessel etiology. We will check a platelet function analysis and again resume warfarin for her DVT. Further recommendations pending workup of further clinical course. Please call for any questions or issues. We thank you very much for allowing us to assist in the care of this patient. Dictated by... Jennifer Houston A.P.R.N. for Yumiko Kirk M.D. Unit #: [id number] #: [id number] Patient: VIOLET LÓPEZ JORJE/ladonna TD: 06/26/2016 18:22 JOB #: [id number] CONSULTATION REPORT X Jennifer Houston [employer] X CONSULTATION REPORT
[2016-06-24 13:26] LABS: URINE SOURCE CATH
[2016-06-24 13:35] LABS: URINE APPEARANCE CLOUDY; URINE BILIRUBIN NEG (NEG); URINE BLOOD 1+ (NEG); URINE COLOR YELLOW; URINE GLUCOSE NEG (NEG); URINE KETONE NEG (NEG); URINE LEUKOCYTE ESTERASE 1+ (NEG); URINE NITRATE NEG (NEG); URINE PROTEIN 3+ (NEG); URINE SPECIFIC GRAVITY 1.017 (1.003-1.035); URINE UROBILINOGEN 0.2 MG/DL (NEG)
[2016-06-24 13:37] LABS: CULTURE INDICATED? YES; URINE BACTERIA AUWI 4+ (NEGATIVE); URINE SQUAMOUS EPITHELIAL CELL NONE SEEN /[HPF]; UWBCS1 AUWI 50-100 (0-5)
[~2016-06-24 13:39] MED LIST: ALDACTONE25 MG PO; CLONIDINE PO; CLOPIDOGREL75 MG PO; ENABLEX7.5 MG PO; NORVASC10 MG PO; TOPROL XL100 MG PO
[2016-06-24 13:48] LABS: INR 1.7; PARTIAL THROMBOPLASTIN TIME 33.6 SECONDS (23.5-31.3)
[2016-06-24 13:51] LABS: BASOPHIL% 0.8 % (0-2.5); EOSINOPHIL# 0.2 X10e3 (0-0.7); EOSINOPHIL% 4.1 % (0.0-7.0); HEMATOCRIT 39.3 % (35.0-45.0); HEMOGLOBIN 12.8 gm/dL (12.0-16.0); LYMPHOCYTE# 1.2 X10e3 (1.0-3.5); LYMPHOCYTE% 27.9 % (17.0-45.0); MEAN CELL VOLUME 94.1 FL (83-96); MEAN CORPUSCULAR HEMOGLOBIN 30.5 PG (28-34); MEAN CORPUSCULAR HGB CONC 32.5 g/dL (30-36); MEAN PLATELET VOLUME 10.4 FL (6.5-11.5); MONOCYTE# 0.4 X10e3 (0-1.0); NEUTROPHIL# 2.5 X10e3 (1.5-7.1); NEUTROPHIL% 58.2 % (40-75); PLATELET COUNT 164 X10e3 (140-420); RED BLOOD COUNT 4.18 X10e (3.90-5.30); RED CELL DISTRIBUTION WIDTH 14.2 % (11.0-15.5); WHITE BLOOD COUNT 4.3 X10e3 (4.0-10.5)
[2016-06-24 13:52] LABS: POC - CKMB 2.9 ng/mL (0.0-7.9); POC - TROPONIN <0.05 ng/mL (<=0.05)
[2016-06-24 13:53] LABS: DIFF IND NO
[2016-06-24 13:55] LABS: BILIRUBIN, DIRECT 0.1 mg/dL (0.0-0.2); BILIRUBIN,INDIRECT 0.4 mg/dL (0.0-0.9); BILIRUBIN,TOTAL 0.5 mg/dL (0.2-2.0); BUN/CREATININE RATIO 17.27; CALCIUM SERUM 9.7 mg/dL (8.4-10.2); CREATININE SERUM 2.2 mg/dL (0.6-1.4); GLOM FILT RATE Estimated 22.5 mL/min (>60); POTASSIUM 3.2 mmol/L (3.5-5.1); PROTEIN TOTAL SERUM 7.9 g/dL (6.0-8.3)
[2016-06-24 18:11] LABS: MAGNESIUM 2.1 mg/dL (1.6-3.0)
[2016-06-24 18:30] LABS: %MB 2.7 % (0.0-4.0); MB 2.6 ng/ml
[2016-06-24 18:58] LABS: CREATININE,RANDOM URINE 101 mg/dL; SODIUM URINE RANDOM 63 mmol/L
[2016-06-24] MEDS ORDERED: METOPROLOL PO (19:23)
[2016-06-24] MEDS ORDERED: AMLODIPINE BESY10 MG PO (19:25)
[2016-06-24] MEDS ORDERED: CLONIDINE (19:25)
[2016-06-24] MEDS ORDERED: COL-RITE50 MG PO (19:27)
[2016-06-24] MEDS ORDERED: REMERON15 MG PO (19:28)
[2016-06-24] MEDS ORDERED: CLOPIDOGREL75 MG PO (19:28)
[2016-06-24] MEDS ORDERED: MIRALAX17 GM PO (19:29)
[2016-06-24] MEDS ORDERED: COUMADIN3 MG PO (19:30)
[2016-06-24] MEDS ORDERED: COUMADIN PO (19:32)
[2016-06-24] MEDS ORDERED: CLONIDINE HCL0.1 MG PO (22:31)
[2016-06-25 00:23] LABS: %MB 2.3 % (0.0-4.0); MB 2.4 ng/ml
[2016-06-25 11:03] LABS: HEMOGLOBIN 10.9 gm/dL (12.0-16.0); MEAN CORPUSCULAR HEMOGLOBIN 30.5 PG (28-34); MEAN CORPUSCULAR HGB CONC 32.1 g/dL (30-36); MEAN PLATELET VOLUME 10.8 FL (6.5-11.5); RED BLOOD COUNT 3.58 X10e (3.90-5.30); RED CELL DISTRIBUTION WIDTH 14.3 % (11.0-15.5); WHITE BLOOD COUNT 4.8 X10e3 (4.0-10.5)
[2016-06-25 11:29] LABS: PROTHROMBIN TIME (PATIENT) 21.9 SECONDS (9.6-11.5)
[2016-06-25 11:40] LABS: ALBUMIN SERUM 3.3 g/dL (3.5-5.0); BILIRUBIN,TOTAL 0.7 mg/dL (0.2-2.0); BUN/CREATININE RATIO 14.07; CALCIUM SERUM 8.7 mg/dL (8.4-10.2); CREATININE SERUM 2.7 mg/dL (0.6-1.4); GLOM FILT RATE Estimated 17.8 mL/min (>60); MAGNESIUM 2.1 mg/dL (1.6-3.0); POTASSIUM 3.8 mmol/L (3.5-5.1)
[2016-06-25 12:41] LABS: CHOLESTEROL 223 mg/dL (0-200); HDL CHOLESTEROL 57 mg/dL (35-95); LDL/HDL RATIO 2 RATIO (0-4); TRIGLYCERIDES 136 mg/dL (10-160)
[2016-06-25 12:46] LABS: LDL CHOLESTEROL 139 mg/dL (-130)
[2016-06-25 13:36] LABS: %MB 1.8 % (0.0-4.0); BUN/CREATININE RATIO 15.38; CALCIUM SERUM 9.1 mg/dL (8.4-10.2); CREATININE SERUM 2.6 mg/dL (0.6-1.4); GLOM FILT RATE Estimated 18.5 mL/min (>60); MB 1.6 ng/ml; POTASSIUM 3.9 mmol/L (3.5-5.1)
[2016-06-25 18:35] LABS: P2Y12 INHIB (PFAPLAVIX) 34 PRU (())
[2016-06-26 05:49] LABS: INR 2.3; PROTHROMBIN TIME (PATIENT) 24.8 SECONDS (9.6-11.5)
[2016-06-26 06:17] LABS: ALBUMIN SERUM 3.9 g/dL (3.5-5.0); BILIRUBIN,TOTAL 0.4 mg/dL (0.2-2.0); BUN/CREATININE RATIO 16.08; CALCIUM SERUM 9.4 mg/dL (8.4-10.2); CREATININE SERUM 2.3 mg/dL (0.6-1.4); GLOM FILT RATE Estimated 21.4 mL/min (>60); MAGNESIUM 1.8 mg/dL (1.6-3.0); POTASSIUM 3.6 mmol/L (3.5-5.1); PROTEIN TOTAL SERUM 6.6 g/dL (6.0-8.3)
[2016-06-28] MEDS ORDERED: LORAZEPAM INT2 MG/ML PO (11:50)
[2016-06-28] MEDS ORDERED: ROXANOL20 MG/ML PO (11:51)
== END 2016-06-28 14:20 | DRG 64 ==
LOC: CED 13:39 → CEDOF 06-25 02:40 → C3A PCU 06-25 08:03 → C2A 06-27 22:37
PROVIDERS: Emergency Medicine; Family Medicine; Internal Medicine Nephrology; Psychiatry & Neurology Neurology
DX: I63.512 Cerebral infarction due to unspecified occlusion or stenosis of left middle cerebral artery (principal); A41.51 Sepsis due to Escherichia coli [E. coli]; G92 Toxic encephalopathy; N18.4 Chronic kidney disease, stage 4 (severe); N17.9 Acute kidney failure, unspecified; G81.91 Hemiplegia, unspecified affecting right dominant side; F05 Delirium due to known physiological condition; N39.0 Urinary tract infection, site not specified; F02.81 Dementia in other diseases classified elsewhere, unspecified severity, with behavioral disturbance; G30.9 Alzheimer's disease, unspecified; R47.01 Aphasia; R29.810 Facial weakness; B96.20 Unspecified Escherichia coli [E. coli] as the cause of diseases classified elsewhere; I12.9 Hypertensive chronic kidney disease with stage 1 through stage 4 chronic kidney disease, or unspecified chronic kidney disease; F29 Unspecified psychosis not due to a substance or known physiological condition; E86.9 Volume depletion, unspecified; E87.6 Hypokalemia; M19.90 Unspecified osteoarthritis, unspecified site; R56.9 Unspecified convulsions; Z86.718 Personal history of other venous thrombosis and embolism; Z79.01 Long term (current) use of anticoagulants; Z66 Do not resuscitate; Z96.641 Presence of right artificial hip joint; Z86.73 Personal history of transient ischemic attack (TIA), and cerebral infarction without residual deficits
CPT/HCPCS: 36415; 51702; 70450; 70544; 70547; 70551; 71010; 80048; 80053; 80061; 80076; 81003; 82550; 82553; 82570; 82607; 82947; 83036; 83605; 83735; 84300; 84443; 84484; 85025; 85027; 85576; 85610; 85730; 86140; 87040; 87086; 87088; 87186; 92523-GN; 92526; 92610; 93005; 96374; 96375; 97163; 97167; 97535; 99285; G8978-GP; G8979-GP; G8987-GO; G8988-GO; G8996-GN; G8997-GN; J0360; J0696; J1650; J1815; J2270; J3370; J3480